=== PATIENT | male | born 1990 | race Caucasian/White ===

== ENCOUNTER 2024-05-10 11:58 | Day surgery (SDC) | payer OTHER ==
[~2024-05-10] VITALS: Ht 177.8 cm; Wt 81.6 kg
[~2024-05-10 11:58] MED LIST: IRON65TA2 PO; NOXI1TAB PO
[2024-05-10] MEDS ORDERED: ONDANSETRON 4MG 2ML VIAL As Ordered ONE (15:50)
[2024-05-10] MEDS ORDERED: propofoL 200 MG/20 ML VIAL As Ordered ONE (15:50)
[2024-05-10] MEDS ORDERED: LIDOCAINE 2% 100MG/5ML SDV (FOR ANES.) As Ordered ONE (15:50)
[2024-05-10] MEDS ORDERED: fentaNYL 100 MCG/2 ML INJECTION As Ordered ONE (15:50)
[2024-05-10] MEDS ORDERED: MIDAZOLAM INJ 2MG/2ML VIAL As Ordered ONE (15:50)
[2024-05-10] MEDS ORDERED: ACETAMINOPHEN 1000MG 100ML IV BAG As Ordered ONE (15:53)
[2024-05-10] MEDS: ceFAZolin 2 GM/D5W 50 ML IV BAG As Ordered ONE (16:20)
[2024-05-10] MEDS ORDERED: fentaNYL 100 MCG/2 ML INJECTION IV PRN (17:25)
[2024-05-10] MEDS ORDERED: HYDROMORPHONE HCL 0.5 MG/ 0.5 ML SYRINGE IV PRN (17:25)
[2024-05-10] MEDS ORDERED: LR 1,000 ML IV SCH (17:25)
[2024-05-10] MEDS: ISOVUE-300 61% 100ML VIAL As Ordered ONE (17:32)
[2024-05-10] MEDS: ONDANSETRON 4MG 2ML VIAL IV PRN (18:09)
[2024-05-10] MEDS: oxyCODONE 5MG TAB PO PRN (18:09)
[2024-05-10] MEDS: METOCLOPRAMIDE INJ 10MG/2ML VIAL IV PRN (18:09)
[2024-05-10 18:46] VITALS: BP 131/67; TEMP 98.1; O2SAT 100
== END 2024-05-10 18:48 | disposition home or self-care (01) ==
LOC: M SDC 11:58
PROVIDERS: ATTEND Specialist
DX: N13.2 Hydronephrosis with renal and ureteral calculous obstruction (principal)
CPT/HCPCS: 52356; 76000; C1769; C2617; J0131; J0690; J1100; J2250; J2405; J2765; J3010; Q9967

== ENCOUNTER → 2025-06-17 | Outpatient (CLI) | payer OTHER ==
[~2025-06-17] MED LIST changes: +K-PHTAB2 PO
== END ==
LOC: M RAD 08:39
PROVIDERS: ATTEND Urology
DX: N20.0 Calculus of kidney (principal)